=== PATIENT | male | born 1950 | race Native Hawaiian/Other Pacific Islander ===

== ENCOUNTER 2021-06-25 16:40 | Outpatient (CLI) | payer BC ==
[2021-06-25 17:02] LABS: PLATELET COUNT 131 K/uL (142-355)
[2021-06-25 17:38] LABS: POTASSIUM 3.6 mmol/L (3.6-5.2)
== END 2021-06-25 21:28 | disposition home or self-care (01) ==
LOC: LAB 16:40
PROVIDERS: ATTEND Internal Medicine
DX: H04.69 Other changes of lacrimal passages (principal)
CPT/HCPCS: 80048; 80076; 82140; 85027; 85610

== ENCOUNTER 2021-06-30 13:03 | Outpatient (CLI) | payer BC | END 2021-06-30 18:53 | disposition home or self-care (01) | LOC: LAB 13:03 | PROVIDERS: ATTEND Internal Medicine | DX: R39.9 Unspecified symptoms and signs involving the genitourinary system (principal); R39.0 Extravasation of urine | CPT/HCPCS: 81000; 87086; 87088 ==

== ENCOUNTER 2021-07-02 13:17 | Outpatient (CLI) | payer BC | END 2021-07-02 20:02 | disposition home or self-care (01) | LOC: LAB 13:17 | PROVIDERS: ATTEND Internal Medicine | DX: E72.20 Disorder of urea cycle metabolism, unspecified (principal); I50.9 Heart failure, unspecified | CPT/HCPCS: 82140 ==

== ENCOUNTER 2021-07-09 11:31 | Outpatient (CLI) | payer BC | END 2021-07-09 18:56 | disposition home or self-care (01) | LOC: LAB 11:31 | PROVIDERS: ATTEND Internal Medicine | DX: K74.60 Unspecified cirrhosis of liver (principal); C22.0 Liver cell carcinoma | CPT/HCPCS: 82140 ==

== ENCOUNTER 2021-07-21 09:17 | Outpatient (CLI) | payer BC | END 2021-07-21 20:53 | disposition home or self-care (01) | LOC: LAB 09:17 | PROVIDERS: ATTEND Internal Medicine | DX: K74.69 Other cirrhosis of liver (principal) | CPT/HCPCS: 82140 ==

== ENCOUNTER 2021-07-28 09:01 | Outpatient (CLI) | payer BC | END 2021-07-28 19:01 | disposition home or self-care (01) | LOC: LAB 09:01 | PROVIDERS: ATTEND Internal Medicine | DX: K74.69 Other cirrhosis of liver (principal) | CPT/HCPCS: 82140 ==

== ENCOUNTER 2021-08-04 09:54 | Outpatient (CLI) | payer BC | END 2021-08-04 18:58 | disposition home or self-care (01) | LOC: LAB 09:54 | PROVIDERS: ATTEND Internal Medicine | DX: K74.69 Other cirrhosis of liver (principal) | CPT/HCPCS: 82140 ==

== ENCOUNTER 2021-09-22 14:38 | Outpatient (CLI) | payer BC | END 2021-09-22 19:02 | disposition home or self-care (01) | LOC: LAB 14:38 | PROVIDERS: ATTEND Physician Assistant Medical | DX: C22.8 Malignant neoplasm of liver, primary, unspecified as to type (principal) | CPT/HCPCS: 82140 ==